=== PATIENT | female | born 1975 | race Hispanic/Latino ===

== ENCOUNTER 2020-09-30 10:48 | Emergency (ER) | payer SELFPAY ==
--- NOTE | 2020-09-30 11:53 | Emergency Department Report ---
ED Chest Pain HPI - General Chief Complaint: Chest Pain Stated Complaint: CHEST PAIN PUI?: No Time Seen by Provider: 09/30/20 11:48 Source: patient, EMS Mode of arrival: Stretcher Limitations: No Limitations - History of Present Illness Initial Comments: CC: chest pain HPI: This is a 45 yo female with hx of anxiety disorder, tobacco dependence, migraine headache, hypokalemia who presents with severe chest pain since last night. Gradual onset of sharp lower chest pain. No radiation. +shortness of breath. No cough. No fever. Pain became worse today. +facial numbness +left arm pain. EMS called to transport patient from her place of work. She takes Xanax 1 mg twice daily sometimes she only takes 0.5 mg twice daily. No history of hypertension, diabetes mellitus, cardiac disease or dyslipidemia. No family history of heart disease. Patient most recently took Xanax last night. Patient admits to ingesting Goody' s powder twice a day for daily migraine headaches. MD Complaint: chest pain -: Gradual, Last night Onset: during rest Pain Location: substernal, epigastric Pain Radiation: LUE Severity: severe Severity scale (0 -10): 7 Quality: sharp Consistency: constant Improves With: nothing Worsens With: nothing Treatments Prior to Arrival: other (EMS transport) - Related Data Home Medications Medication Instructions Recorded Confirmed Last Taken Xanax TAB 0.5 mg PO BID 09/30/20 09/30/20 09/29/20 Previous Rx's Medication Instructions Recorded Last Taken Type Famotidine [Acid Controller] 20 mg PO BID 30 Days #60 tablet 09/30/20 Unknown Rx Allergies Allergy/AdvReac Type Severity Reaction Status Date / Time codeine Allergy Severe Angioedema Verified 09/30/20 12:09 Sulfa (Sulfonamide Allergy Mild Rash Verified 09/30/20 12:10 Antibiotics) Heart Score - HEART Score History: Slightly suspicious EKG: Normal Age: 45-65 Risk factors: 1-2 risk factors Troponin: < normal limit HEART Score: 2 - EKG Read Time Time EKG Completed: 11:57 EKG Read Time: 12:00 - Critical Actions Critical Actions: 0-3 pts:0.9-1.7%risk of adverse cardiac event.Candidate for discharge ED Review of Systems ROS: Stated complaint: CHEST PAIN Other details as noted in HPI Comment: All other systems reviewed and negative Constitutional: denies: fever, malaise Respiratory: shortness of breath. denies: cough Cardiovascular: chest pain Gastrointestinal: denies: abdominal pain, nausea, vomiting Psychiatric: anxiety ED Past Medical Hx - Past Medical History Previous Medical History?: Yes Hx Headaches / Migraines: Yes Hx Psychiatric Treatment: Yes (anxiety) - Surgical History Past Surgical History?: Yes Additional Surgical History: hysterectomy, x 2 - Family History Family history: no significant - Social History Smoking Status: Current Every Day Smoker Substance Use Type: Alcohol - Medications Home Medications: Home Medications Medication Instructions Recorded Confirmed Last Taken Type Famotidine [Acid Controller] 20 mg PO BID 30 Days #60 tablet 09/30/20 Unknown Rx Xanax TAB 0.5 mg PO BID 09/30/20 09/30/20 09/29/20 History ED Physical Exam - General Limitations: No Limitations General appearance: alert, in no apparent distress, anxious - Head Head exam: Present: atraumatic, normocephalic - Eye Eye exam: Present: normal appearance - ENT ENT exam: Present: mucous membranes moist - Neck Neck exam: Present: normal inspection, full ROM - Respiratory Respiratory exam: Present: normal lung sounds bilaterally. Absent: respiratory distress, wheezes, rales, rhonchi, stridor - Cardiovascular Cardiovascular Exam: Present: regular rate, normal rhythm. Absent: systolic murmur, diastolic murmur, rubs, gallop - GI/Abdominal GI/Abdominal exam: Present: soft, guarding. Absent: distended, tenderness, rebound, normal bowel sounds - Extremities Exam Extremities exam: Present: normal inspection - Back Exam Back exam: Present: normal inspection - Neurological Exam Neurological exam: Present: alert, oriented X3 - Psychiatric Psychiatric exam: Present: normal affect, anxious - Skin Skin exam: Present: warm, dry, intact, normal color. Absent: rash ED Course Vital Signs 09/30/20 09/30/20 09/30/20 11:32 11:34 11:46 Temperature 97.9 F Pulse Rate 67 69 Respiratory 12 11 L Rate Blood Pressure 110/61 110/61 O2 Sat by Pulse 99 100 100 Oximetry 09/30/20 09/30/20 09/30/20 12:00 12:16 12:30 Temperature Pulse Rate 68 67 67 Respiratory 18 17 Rate Blood Pressure 136/60 110/61 118/48 O2 Sat by Pulse 100 100 100 Oximetry - Reevaluation(s) Reevaluation #1: 09/30/20 14:06 Upon reassessment, patient has mild pressure sensation in her lower sternal region. She states that the pain is relieved with deep palpation. ED Medical Decision Making - Lab Data Result diagrams: 09/30/20 12:29 09/30/20 12:29 - EKG Data -: EKG Interpreted by Me EKG shows normal: sinus rhythm, axis, intervals, QRS complexes, ST-T waves Rate: normal - EKG Data Interpretation: normal EKG 09/30/20 12:11 EKG obtained 1157 EKG interpreted by me rate 60 bpm Normal sinus rhythm normal rate normal axis normal intervals no ST elevation no ST-T signs of ischemia normal EKG - Radiology Data Radiology results: report reviewed [address] [address] XRay Report Signed Patient: GOKUL GONZALEZ MR#: [id number] [birth year] : 1975 Acct:[id number] Age/Sex: 45 / F ADM Date: 09/30/20 Loc: ED Attending Dr: Ordering Physician: Abigail Rodriguez MD Date of Service: 09/30/20 Procedure(s): XR chest 1V ap Accession Number(s): [id number] cc: Abigail Rodriguez MD Fluoro Time In Minutes: CHEST 1 VIEW 09/30/2020 11:11 AM INDICATION / CLINICAL INFORMATION: Chest Pain. COMPARISON: None available. FINDINGS: SUPPORT DEVICES: None. HEART / MEDIASTINUM: No significant abnormality. LUNGS / PLEURA: No significant pulmonary or pleural abnormality. No pneumothorax. ADDITIONAL FINDINGS: No significant additional findings. IMPRESSION: 1. No acute findings. Signer Name: Akil Chambers DO Signed: 09/30/2020 12:13 PM Workstation Name: [id number] Transcribed By: LENIN Dictated By: AKIL CHAMBERS DO Electronically Authenticated By: KAIL CHABMERS DO Signed Date/Time: 09/30/20 1213 DD/ 1213 TD/TT: - Medical Decision Making Diagnosis: Peptic ulcer disease, chest wall pain. Patient given referral to [facility] for outpatient patient cardiac risk ratification.. Heart score less than 3. Smoking cessation recommended. PERC negative for PE. Prescribed famotidine. Critical care attestation.: If time is entered above; I have spent that time in minutes in the direct care of this critically ill patient, excluding procedure time. ED Disposition Clinical Impression: Peptic ulcer disease, Chest wall pain, History of anxiety, Tobacco dependence Disposition: DC- TO HOME OR SELFCARE Is pt being admited?: No Does the pt Need Aspirin: No Condition: Stable Instructions: Nonspecific Chest Pain, Adult Prescriptions: Famotidine [Acid Controller] 20 mg PO BID 30 Days #60 tablet Referrals: CORAZON GOMEZ MD [Staff Physician] - 3-5 Days
[2020-09-30] MEDS ORDERED: ALPRAZolam 1 MG TAB PO ONE (12:13)
[2020-09-30] MEDS ORDERED: ACETAMINOPHEN 500 MG TAB PO ONE (12:13)
--- NOTE | 2020-09-30 12:18 | XRay Report ---
CHEST 1 VIEW 09/30/2020 11:11 AM INDICATION / CLINICAL INFORMATION: Chest Pain. COMPARISON: None available. FINDINGS: SUPPORT DEVICES: None. HEART / MEDIASTINUM: No significant abnormality. LUNGS / PLEURA: No significant pulmonary or pleural abnormality. No pneumothorax. ADDITIONAL FINDINGS: No significant additional findings. IMPRESSION: 1. No acute findings. Signer Name: Akil Tijerina DO Signed: 09/30/2020 12:13 PM Workstation Name: [employer]
[2020-09-30] MEDS: ASPIRIN 81 MG TAB CHEW PO ONE ×2 (12:45→13:15)
[2020-09-30 13:01] LABS: Hematocrit 42.2 % (30.3-42.9); Hemoglobin 14.5 gm/dl (10.1-14.3); Mean Corpuscular HGB Conc 34 % (30-34); Mean Corpuscular Volume 102 fl (79-97); Platelet Count 325 K/mm3 (140-440); Red Blood Count 4.16 M/mm3 (3.65-5.03); Red Cell Distribution Width 13.2 % (13.2-15.2)
[2020-09-30 13:24] LABS: Blood Urea Nitrogen 5 mg/dL (7-17); Calcium 9.8 mg/dL (8.4-10.2); Hemolysis Index 12
[2020-09-30 13:35] LABS: BUN/Creatinine Ratio 10
[2020-09-30] MEDS ORDERED: PANTOPRAZOLE 40 MG INJ IV ONE (14:26)
[2020-09-30] MEDS ORDERED: LIDOCAINE VISCOUS 2% 15 ML ORAL LIQD PO ONE (14:26)
[2020-09-30] MEDS ORDERED: ALUM-MAG HYDROXIDE-SIMETHICONE 200-200-20MG/5ML ORAL LIQD 30 ML PO ONE (14:26)
[2020-09-30 14:30] LABS: Total Cells Counted 100
[2020-09-30 14:31] LABS: Platelet Estimate Consistent w Auto; RBC Morphology Normal
[2020-09-30 16:31] VITALS: BP 115/80
--- NOTE | 2020-10-01 14:06 | Electrocardiograph Report ---
[facility] Test Date: 2020-09-30 Test Time: 11:57:57 Pat Name: GOKUL GONZALEZ Department: Room: Gender: F [employer] Technical Operator: GABE : 1975 Requested By: JUANCHO BERNSTEIN Order Number: [id number] Reading MD: Jimbo Rapp Measurements Intervals [place] Rate: 64 P: 29 NC: 160 QRS: 13 QRSD: 71 T: 33 QT: 396 QTc: 410 Interpretive Statements Sinus rhythm No previous ECG available for comparison Electronically Signed On 10-01-2020 14:06:39 EDT by Jimbo Rapp
== END 2020-09-30 16:31 | disposition home or self-care (01) ==
LOC: ED 10:48
DX: K27.9 Peptic ulcer, site unspecified, unspecified as acute or chronic, without hemorrhage or perforation (principal); R07.89 Other chest pain; F41.9 Anxiety disorder, unspecified; F17.200 Nicotine dependence, unspecified, uncomplicated; G43.909 Migraine, unspecified, not intractable, without status migrainosus; Z79.899 Other long term (current) drug therapy; Z88.6 Allergy status to analgesic agent; Z88.2 Allergy status to sulfonamides; Z90.710 Acquired absence of both cervix and uterus; Z98.890 Other specified postprocedural states
CPT/HCPCS: 36415; 71045; 80048; 84484; 85007; 85025; 93005; 96374; 99284; C9113